=== PATIENT | male | born 1990 | race Caucasian/White ===

== ENCOUNTER 2017-03-30 01:07 | Emergency (ER) | payer OTHER ==
[2017-03-30] MEDS ORDERED: LORazepam 1 MG TAB PO STA (01:32)
--- NOTE | 2017-03-30 02:17 | ED ---
General Adult HPI - General Chief complaint: Neuro Symptoms/Deficit Stated complaint: facial numbness Time Seen by Provider: 03/30/17 01:25 Source: patient, RN notes reviewed Mode of arrival: wheelchair Limitations: no limitations - History of Present Illness Initial comments: This a 27-year-old male presents emergency Department chief complaint of right- sided facial numbness. Patient states that he was at home trying to go to sleep and states that he noticed some abnormal smell states shortly after he developed some numbness at the corner of his mouth and right cheek region. Patient states he has a long history of anxiety in which she does have Xanax at home but states that he has been trying take a more holistic approach and taking vitamins and self relaxing but states that tonight he was not sure what was going on and felt this may be different. Patient states he has become anxious and states that he feels that he is developing new symptoms including right leg numbness. He denies headache, dizziness, blurred vision, focal weakness, chest pain, shortness breath, nausea, vomiting. Patient also states that he has recent started testosterone injections for low testosterone. They told him his anxiety may be related to his testosterone level. - Related Data Home Medications Medication Instructions Recorded Confirmed ALPRAZolam [Xanax] 0.25 mg PO BID PRN 11/22/14 05/10/16 Previous Rx's Medication Instructions Recorded Famotidine [Pepcid] 20 mg PO DAILY #30 tablet 05/10/16 Ondansetron Odt [Zofran Odt] 4 mg PO Q12HR PRN #10 tab 05/10/16 Allergies Allergy/AdvReac Type Severity Reaction Status Date / Time acetaminophen [From Vicodin] AdvReac Itching Verified 03/30/17 01:13 hydrocodone bitartrate AdvReac Itching Verified 03/30/17 01:13 [From Vicodin] Review of Systems ROS Statement: Those systems with pertinent positive or pertinent negative responses have been documented in the HPI. ROS Other: All systems not noted in ROS Statement are negative. Past Medical History Past Medical History: No Reported History History of Any Multi-Drug Resistant Organisms: None Reported Past Surgical History: Adenoidectomy Additional Past Surgical History / Comment(s): wisdom teeth. Past Psychological History: Anxiety, Panic Disorder Smoking Status: Current some day smoker Past Alcohol Use History: Occasional Past Drug Use History: None Reported General Exam Limitations: no limitations General appearance: alert, in no apparent distress Head exam: Present: atraumatic, normocephalic, normal inspection Eye exam: Present: normal appearance, PERRL, EOMI. Absent: scleral icterus, conjunctival injection, periorbital swelling ENT exam: Present: normal exam, normal oropharynx, mucous membranes moist, TM's normal bilaterally, normal external ear exam Neck exam: Present: normal inspection, full ROM. Absent: tenderness, meningismus, lymphadenopathy Respiratory exam: Present: normal lung sounds bilaterally. Absent: respiratory distress, wheezes, rales, rhonchi, stridor Cardiovascular Exam: Present: regular rate, normal rhythm, normal heart sounds. Absent: systolic murmur, diastolic murmur, rubs, gallop, clicks Extremities exam: Present: normal inspection, full ROM, normal capillary refill , other (Full strength and neurovascular intact upper and lower extremity). Absent: tenderness, pedal edema, joint swelling, calf tenderness Back exam: Present: full ROM. Absent: tenderness Neurological exam: Present: alert, oriented X3, CN II-XII intact, reflexes normal. Absent: motor sensory deficit Skin exam: Present: warm, dry, intact, normal color. Absent: rash Course Vital Signs 03/30/17 01:09 Temperature 98.6 F Pulse Rate 102 H Respiratory 20 Rate Blood Pressure 131/78 O2 Sat by Pulse 99 Oximetry Medical Decision Making - Medical Decision Making 27-year-old male present emergency department for facial paresthesias. Patient symptoms are most likely related to anxiety but he states that he did not improve after Ativan. Patient underwent a CT, lab work which showed no acute abnormality. Patient's EXAM is benign other than subjective paresthesias. Patient's was updated on the results. We discussed possibility of testosterone injection reaction, anxiety or atypical presentation of Thornton's palsy though he has no facial droop. Patient will be discharged at this time is to follow-up with his primary care physician tomorrow and return if any new, worsening symptoms or any other concerns. - Lab Data Result diagrams: 03/30/17 02:25 03/30/17 02:25 Lab Results 03/30/17 03/30/17 Range/Units 02:25 02:25 WBC 9.5 (3.8-10.6) k/uL RBC 4.92 (4.30-5.90) m/uL Hgb 14.9 (13.0-17.5) gm/dL Hct 41.0 (39.0-53.0) % MCV 83.3 (80.0-100.0) fL MCH 30.2 (25.0-35.0) pg MCHC 36.3 (31.0-37.0) g/dL RDW 14.2 (11.5-15.5) % Plt Count 233 (150-450) k/uL Neutrophils % 68 % Lymphocytes % 20 % Monocytes % 7 % Eosinophils % 2 % Basophils % 1 % Neutrophils # 6.4 (1.3-7.7) k/uL Lymphocytes # 1.9 (1.0-4.8) k/uL Monocytes # 0.7 (0-1.0) k/uL Eosinophils # 0.2 (0-0.7) k/uL Basophils # 0.1 (0-0.2) k/uL Poikilocytosis Slight Sodium 141 (137-145) mmol/L Potassium 3.7 (3.5-5.1) mmol/L Chloride 106 (98-107) mmol/L Carbon Dioxide 22 (22-30) mmol/L Anion Gap 13 mmol/L BUN 13 (9-20) mg/dL Creatinine 0.80 (0.66-1.25) mg/dL Est GFR (MDRD) Af Amer >60 (>60 ml/min/1.73 sqM) Est GFR (MDRD) Non-Af >60 (>60 ml/min/1.73 sqM) Glucose 110 H (74-99) mg/dL Calcium 9.8 (8.4-10.2) mg/dL Total Bilirubin 0.6 (0.2-1.3) mg/dL AST 23 (17-59) U/L ALT 37 (21-72) U/L Alkaline Phosphatase 77 (38-126) U/L Total Protein 7.5 (6.3-8.2) g/dL Albumin 4.7 (3.5-5.0) g/dL Disposition Clinical Impression: Facial paresthesia Disposition: HOME SELF-CARE Condition: Stable Instructions: Paresthesia (ED) Additional Instructions: Please return to the Emergency Department if symptoms worsen or any other concerns. Referrals: Maday Montes III, MD [Primary Care Provider] - 1-2 days Time of Disposition: 03:04
[2017-03-30 02:35] LABS: Basophils # (A) 0.1 k/uL (0-0.2); Basophils % (A) 1 %; CH 29.8; Eosinophils # (A) 0.2 k/uL (0-0.7); Eosinophils % (A) 2 %; HDW 3.54; HGB 14.9 gm/dL (13.0-17.5); Luc # (Auto) 0.22; Luc % (Auto) 2; Lymphocytes # (A) 1.9 k/uL (1.0-4.8); Lymphocytes % (A) 20 %; MCH 30.2 pg (25.0-35.0); MCHC 36.3 g/dL (31.0-37.0); MCV 83.3 fL (80.0-100.0); Mean Platelet Volume 8.2; Monocytes # (A) 0.7 k/uL (0-1.0); Monocytes % (A) 7 %; Neutrophils # (A) 6.4 k/uL (1.3-7.7); Neutrophils % (A) 68 %; Poikilocytosis Slight; RBC 4.92 m/uL (4.30-5.90); RDW 14.2 % (11.5-15.5); WBC 9.5 k/uL (3.8-10.6); WBC (Perox) 9.73
--- NOTE | 2017-03-30 02:36 | CT ---
EXAM: CT Head Without Intravenous Contrast CLINICAL HISTORY: Right-sided facial numbness. TECHNIQUE: Axial computed tomography images of the head/brain without intravenous contrast. CTDI is 57.40 mGy and DLP is 1047.10 mGy-cm. This CT exam was performed using one or more of the following dose reduction techniques: automated exposure control, adjustment of the mA and/or kV according to patient size, and/or use of iterative reconstruction technique. COMPARISON: No relevant prior studies available. FINDINGS: Brain: Unremarkable. No hemorrhage. No significant white matter disease. No edema. Ventricles: Unremarkable. No ventriculomegaly. Bones/joints: Unremarkable. No acute fracture. Soft tissues: Unremarkable. Sinuses: Unremarkable as visualized. No acute sinusitis. Mastoid air cells: Unremarkable as visualized. No mastoid effusion. IMPRESSION: Normal head/brain CT.
[2017-03-30 02:48] LABS: ALT 37 U/L (21-72); AST 23 U/L (17-59); Alkaline Phosphatase 77 U/L (38-126); Anion Gap 13 mmol/L; Blood Urea Nitrogen 13 mg/dL (9-20); Calcium 9.8 mg/dL (8.4-10.2); Carbon Dioxide 22 mmol/L (22-30); Chloride 106 mmol/L (98-107); Glucose 110 mg/dL (74-99); Non-African American GFR(MDRD) >60 (>60 ml/min/1.73 sqM); Potassium 3.7 mmol/L (3.5-5.1); Sodium 141 mmol/L (137-145); Total Bilirubin 0.6 mg/dL (0.2-1.3); Total Protein 7.5 g/dL (6.3-8.2)
[2017-03-30 03:08] VITALS: BP 118/62; PULSE 62; RESP 16; TEMP 97.8
== END 2017-03-30 03:07 | disposition home or self-care (01) ==
LOC: EC 01:07
DX: R20.9 Unspecified disturbances of skin sensation (principal); R20.0 Anesthesia of skin; F41.0 Panic disorder [episodic paroxysmal anxiety]; F17.200 Nicotine dependence, unspecified, uncomplicated; Z88.5 Allergy status to narcotic agent
CPT/HCPCS: 36415; 70450; 80053; 85025; 99284

== ENCOUNTER 2018-07-09 16:47 | Emergency (ER) | payer OTHER ==
[2018-07-09 16:53] VITALS: BP 128/81; PULSE 79; RESP 18; TEMP 98.1
--- NOTE | 2018-07-09 17:02 | ED ---
Back Pain HPI - General Source: patient Limitations: no limitations <Gwen Thaap - Last Filed: 07/09/18 17:02> - General Source: RN notes reviewed, old records reviewed <Delano Lee - Last Filed: 07/09/18 19:22> - General Chief Complaint: Back Pain/Injury Stated Complaint: lower back pain Poss eps? Time Seen by Provider: 07/09/18 16:59 - History of Present Illness Initial Comments: 28-year-old male patient presents in ED with depression. Patient initial complaint was back pain, however he wants to be seen for his depression. Patient states that he has a long history of generalized anxiety disorder, waxing and waning minor depression. However the last 3 days he has had anhedonia, decreased desire to do anything, mostly stayed in bed all day. Patient is presenting today at the urging of his significant other and friend to be evaluated for his depression. Patient denies desire or plan to hurt himself or other people. Patient denies drinking alcohol or doing any drugs today. Patient denies other symptoms. Systemic: Pt denies fatigue, myalgia, fever/chills, rash. Pt denies weakness, night sweats, weight loss. Neuro: Pt denies headache, visual disturbances, syncope or pre-syncope. HEENT: Pt denies ocular discharge or irritation, otalgia, rhinorrhea, pharyngitis or notable lymphadenopathy. Cardiopulmonary: Pt denies chest pain, SOB, heart palpitations, dyspnea on exertion. Abdominal/GI: Pt denies abdominal pain, n/v/d. : Pt denies dysuria, burning w/ urination, frequency/urgency. Denies new onset urinary or bowel incontinence. MSK: Pt denies myalgia, loss of strength or function in extremities. Neuro: Pt denies new onset weakness, paresthesias. (Delano Lee) - Related Data Home Medications Medication Instructions Recorded Confirmed ALPRAZolam [Xanax] 0.25 mg PO BID PRN 11/22/14 05/27/17 Allergies Allergy/AdvReac Type Severity Reaction Status Date / Time acetaminophen [From Vicodin] AdvReac Itching Verified 07/09/18 16:53 hydrocodone bitartrate AdvReac Itching Verified 07/09/18 16:53 [From Vicodin] Review of Systems ROS Other: All systems not noted in ROS Statement are negative. <NaifyancyGwen Colón - Last Filed: 07/09/18 17:02> ROS Other: All systems not noted in ROS Statement are negative. <Delano Lee - Last Filed: 07/09/18 19:22> ROS Statement: Those systems with pertinent positive or pertinent negative responses have been documented in the HPI. Past Medical History Past Medical History: No Reported History Additional Past Medical History / Comment(s): chronic back pain panic attacks History of Any Multi-Drug Resistant Organisms: None Reported Past Surgical History: Adenoidectomy Additional Past Surgical History / Comment(s): wisdom teeth. Past Psychological History: Anxiety, Panic Disorder Smoking Status: Former smoker Past Alcohol Use History: Occasional Past Drug Use History: None Reported <Gwen Thapa - Last Filed: 07/09/18 17:02> General Exam Limitations: no limitations <Gwen Thapa - Last Filed: 07/09/18 17:02> <Delano Lee - Last Filed: 07/09/18 19:22> - General Exam Comments Initial Comments: Constitutional: NAD, AOX3, Pt has pleasant affect. HEENT: NC/AT, trachea midline, neck supple, no lymphadenopathy. Posterior pharynx non erythematous, without exudates. External ears appear normal, without discharge. Mucous membranes moist. Eyes PERRLA, EOM intact. There is no scleral icterus. No pallor noted. Cardiopulmonary: RRR, no murmurs, rubs or gallops, no JVD noted. Lungs CTAB in anterior and posterior lemus. No peripheral edema. Abdominal exam: Abdomen soft and non-distended. Abdomen non-tender to palpation in all 4 quadrants. Bowel sounds active in LLQ. No hepatosplenomegaly. No ecchymosis Neuro: CN II-XII grossly intact. No nuchal rigidity. MSK: No posterior calf tenderness bilaterally, homans sign negative bilaterally. Posterior tibialis and radial pulse +2 bilaterally. (Delano Lee) Vital Signs 07/09/18 16:50 Temperature 98.1 F Pulse Rate 79 Respiratory 18 Rate Blood Pressure 128/81 O2 Sat by Pulse 99 Oximetry Medical Decision Making <Gwen Thapa - Last Filed: 12/08/18 17:02> <Delano Lee - Last Filed: 07/09/18 19:22> - Medical Decision Making 28-year-old male patient presented to ED for evaluation of depression. Patient denies suicidal or homicidal ideation, denies wanting to hurt self or others. Patient was evaluated by EPS. EPS developed a plan for outpatient counseling, psychiatry. Patient has good support system per EPS. Patient to follow with PCP in 1-2 days. Patient to return to ED if new signs or symptoms develop, including suicidal ideation, homicidal ideation, any other new symptoms. Case discussed with Dr. Padilla. (Delano Lee) Disposition <ElierGwen L - Last Filed: 07/09/18 17:02> Is patient prescribed a controlled substance at d/c from ED?: No Time of Disposition: 19:22 <Delano Lee - Last Filed: 07/09/18 19:22> Clinical Impression: Depression Disposition: HOME SELF-CARE Condition: Good Instructions: Depression (ED) Additional Instructions: Patient to adhere to previously discussed treatment plan and will take medication(s) as directed. Patient to follow up with PCP in 1-2 days. Patient to return to ED if symptoms do not improve. Referrals: Maday Montes III, MD [Primary Care Provider] - 1-2 days
== END 2018-07-09 19:39 | disposition home or self-care (01) ==
LOC: EC 16:47
DX: F32.9 Major depressive disorder, single episode, unspecified (principal); M54.5 Low back pain; Z87.891 Personal history of nicotine dependence; Z88.6 Allergy status to analgesic agent; Z88.5 Allergy status to narcotic agent
CPT/HCPCS: 99284

== ENCOUNTER 2018-12-08 17:14 | Emergency (ER) | payer OTHER ==
[2018-12-08 17:19] VITALS: BP 104/73; PULSE 96; RESP 16; TEMP 98.9
[2018-12-08] MEDS ORDERED: SODIUM CHLORIDE 0.9% 1,000 ML IV ONE (17:22)
--- NOTE | 2018-12-08 17:47 | ED ---
General Adult HPI - General Chief complaint: Anxiety Stated complaint: Anxiety Time Seen by Provider: 12/08/18 17:15 Source: patient, RN notes reviewed Mode of arrival: ambulatory Limitations: no limitations - History of Present Illness Initial comments: This is a 28-year-old male who presents emergency Department complaining of having some ideas of suicide where he never ever thought of suicide in the past. Patient states he started Abilify about a week to 10 days ago and after that he started having these thoughts of suicide but states he is not suicidal at all and does not think it harm himself but he doesn't know why he keeps having these thoughts of suicide. Patient states he is just here to see if it's okay to come off his Abilify. Patient denies any homicidal ideations per patient denies any alcohol or drug use today. Patient denies any physical complaints today. - Related Data Home Medications Medication Instructions Recorded Confirmed ALPRAZolam [Xanax] 0.25 mg PO BID PRN 11/22/14 05/27/17 Allergies Allergy/AdvReac Type Severity Reaction Status Date / Time acetaminophen [From Vicodin] AdvReac Itching Verified 12/08/18 17:18 hydrocodone bitartrate AdvReac Itching Verified 12/08/18 17:18 [From Vicodin] Review of Systems ROS Statement: Those systems with pertinent positive or pertinent negative responses have been documented in the HPI. ROS Other: All systems not noted in ROS Statement are negative. Past Medical History Past Medical History: No Reported History Additional Past Medical History / Comment(s): chronic back pain panic attacks History of Any Multi-Drug Resistant Organisms: None Reported Past Surgical History: Adenoidectomy Additional Past Surgical History / Comment(s): wisdom teeth. Past Psychological History: Anxiety, Panic Disorder Smoking Status: Former smoker Past Alcohol Use History: Occasional Past Drug Use History: None Reported General Exam - General Exam Comments Initial Comments: GENERAL Patient is well-developed and well-nourished. Patient is in no acute distress. EYES Patient's pupils are equal and round. Extraocular motion is intact SKIN Unremarkable NEURO The patient is alert and oriented 3 PYSCH Patient has normal interpersonal interactions. Patient denies any suicidal ideations he states occasionally has thoughts that pop into his mind about suicide but he is not thinking of suicide and he does not believe he will act on it he just wants to know if he can stop the Abilify because this appears to have started when he started his Abilify. MUSCULOSKELETAL Patient was all 4 times with full range of motion Limitations: no limitations Course Vital Signs 12/08/18 17:16 Temperature 98.9 F Pulse Rate 96 Respiratory 16 Rate Blood Pressure 104/73 O2 Sat by Pulse 98 Oximetry Disposition Clinical Impression: Anxiety Disposition: HOME SELF-CARE Condition: Good Instructions (If sedation given, give patient instructions): Generalized Anxiety Disorder (ED) Additional Instructions: Patient should reduce his Abilify to half a pill for a week and then a quarter of a pill the next week and then stop it altogether. Is patient prescribed a controlled substance at d/c from ED?: No Referrals: Maday Montes III, MD [Primary Care Provider] - 1-2 days Time of Disposition: 17:54
== END 2018-12-08 18:12 | disposition home or self-care (01) ==
LOC: EC 17:14
DX: F41.9 Anxiety disorder, unspecified (principal); Z87.891 Personal history of nicotine dependence; Z88.5 Allergy status to narcotic agent; Z88.6 Allergy status to analgesic agent
CPT/HCPCS: 99283